=== PATIENT | female | born 1975 | race Caucasian/White ===

== ENCOUNTER 2025-07-24 11:19 | Emergency (ER) | payer OTHER, SELFPAY ==
[2025-07-24 11:20] VITALS: BP 173/102; PULSE 84; RESP 18; TEMP 36.6; O2SAT 100
[2025-07-24 13:56] VITALS: BMI 27.9
[2025-07-24 13:57] VITALS: BP 152/96; PULSE 70; O2SAT 97
--- NOTE | 2025-07-24 14:08 | CT_ITS ---
PROCEDURE: CT/Abdomen/Pelvis without Cont
[2025-07-24 14:29] LABS: Mucous, Urine 0 SEEN /hpf (<or=2+); Red Blood Cells-Urine 0 SEEN /hpf (0-5)
[2025-07-24 14:31] LABS: Color, Urine Amber (Yellow); Glucose, Dipstick Normal (Normal); Ketone-Dipstick Negative (Negative); Leukocyte Esterase-Dipstick 25 /ul (Negative); Nitrite-Dipstick Positive (Negative); Occult Blood-Urine Negative /ul (Negative); Protein-Dipstick 15 mg/dl (Negative); Specific Gravity, Urine 1.015 (1.002-1.030)
[2025-07-24 14:34] LABS: Urine Bilirubin Dipstick 3 mg/dL (Negative)
[2025-07-24 14:37] LABS: Squamous Epithelial Cells - UA 0-5 SEEN /hpf (5-10)
[2025-07-24 15:00] VITALS: BP 170/106; PULSE 65; RESP 18; O2SAT 97
--- NOTE | 2025-07-24 15:04 | ED.VIS.GI ---
HPI HPI - GI History of Present Illness Chief Complaint: Flank Pain Informant: patient Narrative Narrative: Patient is a 50-year-old female with a history of nephrolithiasis presenting left back pain, and urinary urgency. - Symptoms began yesterday with urinary urgency; took Azo, which altered urine color. Noticed no hematuria prior to that. - This morning, urgency increased, and she developed back pain. - Describes pain as intermittent, currently mild, and managed with ibuprofen taken 3-4 hours ago. - Associated symptoms include mild nausea and one episode of dry heaving; denies emesis, fever, or dysuria. - History of nephrolithiasis x3; passed stones twice, believes third stone passed spontaneously; no surgical interventions required. - Denies any prior abdominal surgeries. [facility] Medical History (Updated 07/24/25 @ 16:[address] Dylan Hanley MD) Kidney stones Home Medications ?Medication ?Instructions ?Recorded ?Last Taken ?Type ondansetron 8 mg disintegrating 8 mg PO Q8H PRN nausea and 07/24/25 Unknown Rx tablet vomiting #15 tabs oxycodone-acetaminophen 5 mg-325 1 tab PO Q6H PRN PRN Pain 3 days 07/24/25 Unknown Rx mg tablet #12 TABLETS Allergy/AdvReac Type Severity Reaction Status Date / Time No Known Allergies Allergy Verified 07/24/25 11:23 Social History Smoking Status: Never smoker ROS ROS ED Constitutional Constitutional ED: Denies chills or fever(s) Eyes Eyes: Denies change in vision or diplopia ENT ENT ED: Denies rhinorrhea or sore throat Cardiovascular Cardiovascular: Denies chest pain or palpitations Respiratory/Chest Respiratory/Chest: Denies cough or dyspnea Gastrointestinal Gastrointestinal: Reports abdominal pain, nausea and vomiting; Denies diarrhea Genitourinary Genitourinary ED: Reports urinary urgency; Denies dysuria or hematuria Musculoskeletal Musculoskeletal: Reports back pain; Denies neck pain Integumentary Denies abscess or rash Neurologic Neurologic: Denies headache(s), paresthesias or weakness Psychiatric Psychiatric: Denies anxiety or suicidal thoughts EXAM Physical Exam Const Vital Signs: 07/24/25 11:20 07/24/25 13:57 07/24/25 15:00 Temperature 97.9 F Temperature Source Oral Pulse Rate 84 70 65 Respiratory Rate 18 18 Blood Pressure 173/102 H 152/96 H 170/106 H Blood Pressure Mean 125 114 127 Pulse Ox 100 97 97 Oxygen Delivery Method Room Air Room Air Room Air Positive well nourished and well developed Constitutional Narrative: Well-appearing in no distress General Appearance ED: well developed and NAD HEENT Reports moist mucous membranes normocephalic and atraumatic Eyes PERRL and EOMs intact bilaterally Neck full ROM and supple Resp normal respiratory effort and clear to auscultation bilaterally Cardio regular rate, regular rhythm and no murmurs GI non-tender and non-distended Auscultation: normoactive bowel sounds Palpation: soft Back/Spine no CVA tenderness General Back: other FROM Extremity normal to inspection General Extremety ED: Negative for edema, pulses abnormal or tenderness General Extremity: Negative for edema or pulses abnormal Neuro oriented x3, CN's II-XII intact bilaterally and no sensory deficits noted Sensorium / Orientation: awake and alert Motor Exam: strength 5/5 throughout Skin no rashes or lesions noted and no wounds MDM MDM MDM Narrative Medical decision making narrative: Assessment: The patient is a 50-year-old female presenting for acute onset left flank and suprapubic pain with associated urinary urgency and scant hematuria after self-treatment with OTC phenazopyridine yesterday. She reports prior episodes of nephrolithiasis with spontaneous passage. Exam today is benign with non-reproducible abdominal tenderness. Urinalysis is orange-stained from Pyridium, nitrite positive but without pyuria, making urinary tract infection unlikely. CT abdomen/pelvis without contrast shows a 7 mm proximal left ureteropelvic junction calculus without perinephric stranding or rupture. These findings support a definitive diagnosis of left ureteral calculus causing her current pain. Plan: - Provided discharge prescriptions: Percocet for pain, Zofran for nausea - Outpatient urology referral arranged for stone management if she is not able to pass it on her own - Reviewed return precautions: persistent or worsening pain, vomiting, fever, inability to tolerate oral medications - Patient elects discharge after discussion; departing ambulatory and comfortable Diagnostics: - Urinalysis: orange discoloration from Pyridium; nitrite positive; no pyuria, therefore infection not likely - CT abdomen/pelvis without contrast? possible proximal left ureteropelvic stone; no perinephric stranding, no evidence of rupture or other acute findings. Independently interpreted by me, Dylan Hanley. I reviewed the result from the radiologist indicating it is 3-4 mm at UVJ causing obstruction as well as a 9 mm nonobstructing stone within the left kidney Reevaluations: - Patient re-evaluated after ~5 hrs: pain improved without additional treatment, benign abdominal exam, comfortable with discharge plan Lab Data Attestation: I reviewed the patient's lab results. Labs: Laboratory Results - last 24 hr 07/24/25 14:22 Urine Color Tania Urine Clarity Sl. Cloudy Urine pH 5.0 Ur Specific [place] 1.015 Urine Protein 15 H Urine Glucose (UA) Normal Urine Ketones Negative Urine Occult Blood Negative Urine Nitrite Positive H Urine Bilirubin 3 H Urine Urobilinogen 8 H Ur Leukocyte Esterase 25 H Urine RBC 0 SEEN Urine WBC 0-5 SEEN Ur Squamous Epith Cells 0-5 SEEN Urine Bacteria 0 SEEN Urine Mucus 0 SEEN Radiography Diagnostic Testing: Clinical Impression(s) from Imaging Studies Abdomen/Pelvis CT 07/24/25 14:08 IMPRESSION: 3-4 mm obstructive stone at the left UVJ with associated mild hydroureteronephrosis. Reading Location: [facility] Discharge Plan Triage Chief Complaint: Flank Pain ED Provider: Dylan Hanley Dx/Rx/DC Orders Clinical Impression: Ureterolithiasis, Renal colic on left side, Left nephrolithiasis Instructions: ED Kidney Stone with Pain Prescriptions: New oxycodone-acetaminophen 5-325 mg tablet 1 tab PO Q6H PRN PRN (Reason: Pain) 3 Days Qty: 12 0RF ondansetron 8 mg tablet,disintegrating 8 mg PO Q8H PRN (Reason: nausea and vomiting) Qty: 15 0RF Primary Care Provider: Linda Miller NP Referrals: Veronica Staton MD [Med Staff - Active Staff, Urology] - As soon as possible Print Language: [place] Disposition Disposition: Home, Self Care
[2025-07-24 16:16] VITALS: BP 179/100; PULSE 73; RESP 16; TEMP 36.6; O2SAT 99
== END 2025-07-24 16:18 | disposition home or self-care (01) ==
LOC: ED 15:07
PROVIDERS: Emergency Provider Emergency Medicine; PCP Nurse Practitioner Family; Visit Provider Emergency Medicine
DX: N13.2 Hydronephrosis with renal and ureteral calculous obstruction (principal); R39.15 Urgency of urination; Z87.442 Personal history of urinary calculi
CPT/HCPCS: 74176; 81001; 99282; A4216